=== PATIENT | male | born 1960 | race Caucasian/White ===

== ENCOUNTER → 2020-07-13 | Outpatient (CLI) | payer BC ==
--- NOTE | 2020-07-13 08:44 | FL ---
Barium swallow HISTORY: Dysphasia Patient was given high density barium to drink. Swallowing mechanism is normal. No intrinsic esophageal lesion was identified. Degenerative disc patino ges are noted within the cervical spine, mild posterior impression on the cervical esophagus. There i s no aspiration. No laryngeal penetration. Small sliding hiatal hernia is present. No gastroesophagea l reflux is present. 1 minute 16 seconds fluoroscopy time, 55 images obtained. IMPRESSION: Small sliding hiatal hernia. Cervical degenerative disc disease.
== END | disposition home or self-care (01) ==
LOC: RADUSWWP 07:44
PROVIDERS: ATTEND Otolaryngology
DX: K44.9 Diaphragmatic hernia without obstruction or gangrene (principal)
CPT/HCPCS: 74220

== ENCOUNTER → 2021-08-15 | Outpatient (CLI) | payer BC ==
--- NOTE | 2021-08-16 06:40 | US ---
EXAMINATION TYPE: US prostate transrectal DATE OF EXAM: 08/15/2021 COMPARISON: NONE CLINICAL HISTORY: N41.9 INFLAMMATORY DISEASE OF PROSTATE. No urinary systems This examination was performed using the transrectal probe. EXAM MEASUREMENTS: Gland Size: 4.7 x 4.1 x 3.2 cm Volume: 32.46 Predicted PSA: 3.9 Actual PSA (if available):1.4 Heterogenous peripheral zone with no focal abnormality IMPRESSION: Slightly heterogeneous peripheral zone without focal lesion noted. This could reflect changes of abdo zeyad prostatitis. Follow-up PSA and prostate ultrasound advised. Follow-up ultrasound can be perform ed in 6-9 months. Predicted PSA = volume x 0.12 ng/ml Calculated Volume = 0.5236 x L x W x H
== END | disposition home or self-care (01) ==
LOC: RADUSWWP 09:21
PROVIDERS: ATTEND Family Medicine
DX: N41.9 Inflammatory disease of prostate, unspecified (principal)
CPT/HCPCS: 76872

== ENCOUNTER 2024-05-05 11:04 | Day surgery (SDC) | payer BC ==
[2024-05-03 14:22] VITALS: BMI 35.9
[~2024-05-05 11:04] MED LIST: ATROPINE OPHTH SOLN 1% 5ML BTL OPHTHALMIC PRN; TETRACAINE 0.5% OPHTH (PF) DROPS 4 ML BTL OP PRN
[2024-05-05] MEDS: PHENYLEPHRINE 2.5% OPHTH DRP 2ML OP PRN (11:59)
[2024-05-05 12:03] VITALS: TEMP 97.6
[2024-05-05] MEDS: CYCLOPENTOLATE 1% OPHTH SOLN 2 ML BTL OP PRN (12:04)
[2024-05-05] MEDS: IV FLUID CONTINUATION 1,000 ML IV ONE (12:08)
[2024-05-05] MEDS: LACTATED RINGERS 1,000 ML IV SCH (12:15)
[2024-05-05] MEDS: LIDOCAINE 1% (10MG/ML) FOR IV START INTRADERMA PRN (12:16)
[2024-05-05] MEDS ORDERED: MIDAZOLAM 2 MG/2 ML VIAL ONE (12:59)
[2024-05-05] MEDS ORDERED: fentaNYL (PF) 50 MCG/ML 2 ML AMP ONE (12:59)
[2024-05-05] MEDS: EPINEPHrine (PF) 0.3 ML in BALANCED SALT IRRIG SOLN COMB2 500 ML IRRIGATION ONE (13:14)
[2024-05-05] MEDS: HYALURONATE SODIUM INTRAOCULAR 1 EACH SYRINGE (12MG/ML) INTRAOCULA ONE (13:15)
[2024-05-05] MEDS: LIDOCAINE 1% (PF) 10MG/ML VIAL MISCELLANE ONE (13:15)
[2024-05-05] MEDS: BALANCED SALT IRRIG SOLN COMB2 15 ML IRRIG.SOLN IRRIGATION ONE (13:15)
[2024-05-05] MEDS: MOXIFLOXACIN HCL 0.5% DROPS 3 ML BTL OP PRN (13:16)
[2024-05-05] MEDS: TIMOLOL 0.5% OPHTH DROPS 5 ML BTL OP PRN (13:16)
--- NOTE | 2024-05-05 13:39 | P.OP ---
Date of Procedure: 05/05/24 Preoperative Diagnosis: NS Postoperative Diagnosis: same Procedure(s) Performed: PIOL, OD Implants: [id number] Anesthesia: MAC Surgeon: Jayro Moore Pathology: none sent Condition: stable Disposition: same day Indications for Procedure: blurry Operative Findings: no complications
[2024-05-05 14:03] VITALS: RESP 16
[2024-05-05 14:07] VITALS: BP 139/78; PULSE 57
--- NOTE | 2024-05-12 15:25 | OP ---
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 POSTOPERATIVE DIAGNOSIS: Nuclear sclerosis and cortical sclerosis. OPERATION: Phacoemulsification of cataract and intraocular lens implant of the right eye with a Crystalens. NARRATIVE: After obtaining the appropriate consent, the patient was brought to the operating room. There the patient was placed under cardiac monitoring, prepped and draped in the usual sterile manner. The patient was approached from the right temporal side. At the 11 o'clock position, a 1.1 mm keratome was used to create a paracentesis port. Through this opening, 1% Xylocaine MPF 50/50 mix with balanced salt solution was injected into the anterior chamber. This was followed by stabilization of the anterior chamber with Amvisc viscoelastic. At the 9 o'clock position, a 2.75 mm dat keratome was used to create a self-scaling corneal flap incision in a Langerman fashion. Through this opening, a cystotome was introduced to begin a continuous tear capsulorrhexis which was completed using the Utrata forceps. Care was taken to ensure that the capsulorrhexis was at least the size of the mili on the anterior cornea. Hydrodissection and hydrodelineation of the lens was accomplished with balanced salt solution. Phacoemulsification of the lens utilizing phaco chop was accomplished in 9.33 seconds at 9.8% power. Addition Xylocaine MPF was instilled into the anterior chamber. This was followed by removal of the remaining cortex under irrigation and aspiration along with careful polishing of the posterior capsule in a capsule vacuum mode. Additional Amvisc viscoelastic was then used to stabilize the capsular bag, and the [employer]ch [employer] Lomb Crystalens model A01UV 22.0 diopters intraocular lens was injected into the capsular bag without difficulty. The lens was rotated 270 degrees so that the haptics resided at the 6 and 12 o'clock positions, and all remaining viscoelastic was then removed from within the capsular bag and around the anterior chamber. The eye was brought to normal intraocular pressure through the paracentesis port along with slight hydration of the incision sites. Watertight integrity was confirmed using a fluorescein strip. The patient then received 2 drops of 0.5% timolol followed by 2 drops of Vigamox and 2 drops of 1% atropine. The patient was then lightly patched and shielded in the usual manner. There were no complications from the procedure. The patient tolerated the procedure well and was returned to outpatient recovery in good condition. MMODL / IJN: [id number] /
== END 2024-05-05 14:38 | disposition home or self-care (01) ==
LOC: OR 11:04
PROVIDERS: ATTEND Ophthalmology
DX: H25.11 Age-related nuclear cataract, right eye

== ENCOUNTER 2024-06-02 10:23 | Day surgery (SDC) | payer BC, OTHER ==
[2024-05-26 13:14] VITALS: BMI 35.9
[2024-06-02] MEDS: CYCLOPENTOLATE 1% OPHTH SOLN 2 ML BTL OP PRN (10:46)
[2024-06-02] MEDS: PHENYLEPHRINE 2.5% OPHTH DRP 2ML OP PRN (10:51)
[2024-06-02] MEDS: LACTATED RINGERS 1,000 ML IV SCH (10:55)
[2024-06-02] MEDS: LIDOCAINE 1% (10MG/ML) FOR IV START INTRADERMA ONE (10:55)
[2024-06-02] MEDS: IV FLUID CONTINUATION 1,000 ML IV ONE (10:55)
[2024-06-02 11:07] VITALS: TEMP 97.4
[2024-06-02] MEDS ORDERED: MIDAZOLAM 2 MG/2 ML VIAL ONE (11:07)
[2024-06-02] MEDS ORDERED: fentaNYL (PF) 50 MCG/ML 2 ML AMP ONE (11:07)
[2024-06-02] MEDS: EPINEPHrine (PF) 0.3 ML in BALANCED SALT IRRIG SOLN COMB2 500 ML IRRIGATION ONE (11:19)
[2024-06-02] MEDS: HYALURONATE SODIUM INTRAOCULAR 1 EACH SYRINGE (12MG/ML) INTRAOCULA ONE (11:20)
[2024-06-02] MEDS: BALANCED SALT IRRIG SOLN COMB2 15 ML IRRIG.SOLN INTRAOCULA ONE (11:20)
[2024-06-02] MEDS: LIDOCAINE 1% (PF) 10MG/ML VIAL MISCELLANE ONE (11:20)
[2024-06-02] MEDS: TIMOLOL 0.5% OPHTH DROPS 5 ML BTL OP PRN (11:21)
[2024-06-02] MEDS: MOXIFLOXACIN HCL 0.5% DROPS 3 ML BTL OP PRN (11:21)
--- NOTE | 2024-06-02 11:51 | P.OP ---
Date of Procedure: 06/02/24 Preoperative Diagnosis: NS Postoperative Diagnosis: same Procedure(s) Performed: PIOL, OS Implants: [id number] 24.00 Anesthesia: MAC Surgeon: Jayro Moore Pathology: none sent Condition: stable Disposition: same day Indications for Procedure: blurry vision Operative Findings: no complications
[2024-06-02 12:11] VITALS: BP 137/88; PULSE 57; RESP 18
--- NOTE | 2024-06-03 14:51 | OP ---
OPERATIVE REPORT DATE OF SERVICE : 06/02/2024 PREOPERATIVE DIAGNOSIS: Nuclear sclerosis. POSTOPERATIVE DIAGNOSIS: Nuclear sclerosis. OPERATION: Phacoemulsification of cataract and intraocular implant of the left eye. NARRATIVE: After obtaining the appropriate consent, the patient was brought to the operating room. There the patient was placed under cardiac monitoring, prepped and draped in the usual sterile manner. The patient was approached from the left temporal side. The mm Stefan ring inked in gentian michelle was placed centrally on the cornea. At the 11 o'clock position, a 1.1 mm keratome was used to create a paracentesis port. Through this opening, 1% Xylocaine MPF 50/50 mix with balanced salt solution was injected into the anterior chamber. This was followed by stabilization of the anterior chamber with Amvisc viscoelastic. At the 9 o'clock position, a 2.75 mm dat keratome was used to create a self-scaling corneal flap incision in a Langerman fashion. Through this opening, a cystotome was introduced to begin a continuous tear capsulorrhexis which was completed using the Utrata forceps. Care was taken to ensure that the capsulorrhexis was at least the size of the mili on the anterior cornea. Hydrodissection and hydrodelineation of the lens was accomplished with balanced salt solution. Phacoemulsification of the lens utilizing phaco chop was accomplished in 12.28 seconds at 11.1% power. Addition Xylocaine MPF was instilled into the anterior chamber. This was followed by removal of the remaining cortex under irrigation and aspiration along with careful polishing of the posterior capsule in a capsule vacuum mode. Additional Amvisc viscoelastic was then used to stabilize the capsular bag, and the Bausch and Lomb Crystalens model AO1UV 24.0 diopters intraocular lens was injected into the capsular bag without difficulty. The lens was rotated 270 degrees so that the haptics resided at the 6 and 12 o'clock positions, and all remaining viscoelastic was then removed from within the capsular bag and around the anterior chamber. The eye was brought to normal intraocular pressure through the paracentesis port along with slight hydration of the incision sites. Watertight integrity was confirmed using a fluorescein strip. The patient then received 2 drops of 0.5% timolol followed by 2 drops of Vigamox and 2 drops of 1% atropine. The patient was then lightly patched and shielded in the usual manner. There were no complications from the procedure. The patient tolerated the procedure well and was returned to outpatient recovery in good condition. MMTEENA / VIVIANAN: [id number] /
== END 2024-06-02 12:47 | disposition home or self-care (01) ==
LOC: OR 10:23
PROVIDERS: ATTEND Ophthalmology
DX: H25.12 Age-related nuclear cataract, left eye